=== PATIENT | male | born 1945 | race Caucasian/White ===

== ENCOUNTER 2019-11-12 09:28 | Outpatient (CLI) | payer MEDICARE, OTHER ==
--- NOTE | 2019-11-12 11:08 | MRI ---
MRI lumbar spine HISTORY: Low back pain. Radiculopathy. Spinal stenosis. FINDINGS: Radiographs are not available for direct correlation, therefore the lowest lumbar type vert ebra will be designated as L5, with the remainder number accordingly. Images including the retroperitoneum show small cysts of the kidneys. Circumaortic left renal vein. The conus medullaris has normal appearance. Desiccation of the lowest 5 intervertebral discs. Mild di scogenic endplate changes within the bone marrow. Mild physiologic wedging of the T12 vertebral body. Disc space narrowing and mild posterior disc bulge at the T11-12 level of the lower thoracic spine. N o significant central canal or foraminal stenosis evident. T12-L1: Disc space narrowing. Mild osteophytosis. Central canal and neural foramina are patent. L1-2: Prominent anterior osteophyte formation and disc bulge. No significant posterior disc bulge. Th ere are degenerative changes of the facets. Central canal and neural foramina are patent. L2-3: Mild posterior disc bulge. Circumferential degenerative changes. Minimal stenosis of the centra l canal. Mild bilateral foraminal stenoses. L3-4: Posterior degenerative changes including prominent facet hypertrophy. Small amount of fluid in the left facet. Thecal sac is patent. Moderate bilateral foraminal stenoses. L4-5: Disc space narrowing and minimal degenerative retrolisthesis. Mild posterior disc bulge and cir cumferential degenerative changes. Mild stenosis of the central canal. Severe right and very severe left foraminal stenoses. L5-S1: Bilateral pars interarticularis defects. Minimal spondylolisthesis. Thecal sac is patent. Dege nerative changes of the facets. Moderate right and moderate to severe left foraminal stenoses. IMPRESSION : Multilevel degenerative changes throughout the lumbar spine as detailed above. Stenoses are most dewey re at the L4-5 level, left greater than right. Clinical correlation regarding the L4 dermatomes is required. No significant central canal stenoses evident. Bilateral spondylolysis with grade 1 spondylolisthesis lumbosacral junction.
--- NOTE | 2019-11-12 12:18 | CT ---
CT chest noncontrast HISTORY: Bronchitis. Dyspnea. Cough. FINDINGS: No comparison. Lungs are well-inflated. There is very mild cylindrical dilatation of the br onchi to each lung base, involving the lower lobes and the right middle and left upper lobes. No significant upper lobe bronchiectasis evident. Mild widespread diffuse peripheral mild interstitial thickening. Minimal nonfocal peripheral patchy g roundglass opacity. No pleural fluid, pulmonary nodules, or bullae. Airways are patent. Small hiatal hernia. Lack of contrast limits evaluation of the soft tissues. There is calcification i n the arterial structures. Degenerative changes throughout the thoracic spine. IMPRESSION : No active inflammatory process evident. Evidence of mild interstitial lung disease including mild diffuse peripheral interstitial thickening and minimal bibasilar cylindrical bronchiectasis. Atherosclerosis. Small hiatal hernia.
--- NOTE | 2019-11-12 12:29 | MRI ---
MRI OF LEFT SHOULDER PERFORMED WITHOUT CONTRAST ENHANCEMENT: HISTORY: Left shoulder pain after yanking a water hose. FINDINGS: There is marked arthrosis of the AC joint. The infraspinatus tendon is intact. There is marked tendinosis of the supraspinatus tendon. There i s amorphous signal change involving the anterior half of the tendon which is a combination of tendino jewel and tear. I suspect a large component of this is tear with granulation tissue forming in the r egion of the defect. The tendon in this region is felt to be retracted by as much as 12 mm. Infrasp inatus tendon is intact. Subscapularis muscle and tendon show mild tendinosis change of the superior fibers. There are tendinosis changes of the intraarticular portion of biceps tendon. The portion w ithin the bicipital groove is also somewhat thickened. There could be an associated split tear prese nt. There is a truncated appearance to the posterior superior labrum and increased signal change at the biceps anchor. This is all compatible with chronic labral tear and scarring. Mild supraspinatus muscle atrophy is noted. Fairly minimal infraspinatus muscle atrophy is seen. IMPRESSION: 1. Severe tendinosis of the supraspinatus tendon with amorphous signal change involving the anterior half of the tendon which his felt to represent a complete tear involving the anterior half of the te ndon with granulation tissue forming related to this more chronic tear. There is fluid in the subacr omial subdeltoid recess. 2. Chronic-appearing superior labral tear and marked tendinosis of the intraarticular portion of the biceps tendon. 3. Severe arthrosis of the acromioclavicular joint. POS: ROSE
== END 2019-11-12 09:29 | disposition home or self-care (01) ==
LOC: BICMRI 09:28
PROVIDERS: ATTEND Internal Medicine
DX: M48.07 Spinal stenosis, lumbosacral region (principal); M25.512 Pain in left shoulder; J40 Bronchitis, not specified as acute or chronic; M48.061 Spinal stenosis, lumbar region without neurogenic claudication; J84.9 Interstitial pulmonary disease, unspecified; J47.9 Bronchiectasis, uncomplicated; I70.0 Atherosclerosis of aorta; K44.9 Diaphragmatic hernia without obstruction or gangrene; M43.07 Spondylolysis, lumbosacral region; M47.816 Spondylosis without myelopathy or radiculopathy, lumbar region; M75.92 Shoulder lesion, unspecified, left shoulder; S43.432A Superior glenoid labrum lesion of left shoulder, initial encounter; M19.011 Primary osteoarthritis, right shoulder
CPT/HCPCS: 71250; 72148

== ENCOUNTER 2020-08-26 08:56 | Inpatient (IN) | payer MEDICARE ==
[2020-08-26 09:18] LABS: #Eosinphils 0.3 thou/uL (0.0-0.7); #Lymphocytes 1.7 thou/uL (1.20-3.40); #Monocytes 0.7 thou/uL (0.11-0.59); #Neutrophils 6.1 thou/uL (1.40-6.50); %Basophils 0.4 % (0.0-1.0); %Lymphocytes 19.2 % (21.0-51.0); %Monocytes 7.5 % (0.0-10.0); %Neutrophils 69.9 % (42.0-75.0); Hemoglobin 16.6 g/dL (14.0-18.0); Mean Corpuscular HGB CONC 34.2 g/dL (32.0-36.0); Mean Corpuscular Hemoglobin 32.8 pg (27.0-31.0); Mean Corpuscular Volume 95.9 fL (78.0-98.0); Mean Platelet Volume 6.7 fL (7.4-10.4); Platelet Count 321 thou/uL (130-400); RBC Distribution Width 11.6 % (11.5-14.5); Red Blood Cell (RBC) Count 5.06 mill/uL (4.70-6.10); White Blood Cell (WBC) Count 8.7 thou/uL (4.8-10.8)
[2020-08-26 09:37] LABS: ALT (SGPT) 12 U/L (8-55); AST (SGOT) 19 U/L (5-34); Albumin 4.5 g/dL (3.4-4.8); Alkaline Phosphatase 68 U/L (40-110); Anion Gap 18 mmol/L (10-20); BUN (Urea Nitrogen) 17 mg/dL (8.4-25.7); Bilirubin, Total 0.6 mg/dL (0.2-1.2); Calc. Creatinine Clearance 0 mL/min (70-130); Calcium 9.3 mg/dL (7.8-10.44); Carbon Dioxide 24 mmol/L (23-31); Chloride 102 mmol/L (98-107); Globulin 3.1 g/dL (2.4-3.5); Glucose 131 mg/dL (83-110); Potassium 3.9 mmol/L (3.5-5.1); Protein, Total 7.6 g/dL (5.8-8.1); Sodium 140 mmol/L (136-145)
--- NOTE | 2020-08-26 09:38 | RAD ---
XR Chest 1 View Portable History: Chest pain Comparison: Reference is made to a CT the chest November 2019 Findings: Lungs are mildly hypoinflated with atelectatic changes. No confluent airspace consolidation , pneumothorax or effusion. No acute osseous abnormality. Impression: No acute intrathoracic abnormality.
[2020-08-26] MEDS ORDERED: Iopamidol 370 76% 50 ML VIAL FS ONE (09:44)
[2020-08-26] MEDS ORDERED: Iopamidol 370 76% 100 ML VIAL ONE (09:44)
[2020-08-26] MEDS ORDERED: Heparin 10,000 UNITS/ 10 ML VIAL ONE (09:51)
[2020-08-26] MEDS ORDERED: Clopidogrel Bisulfate 300 MG TAB ONE (09:51)
[2020-08-26 09:59] LABS: CKMB 3.8 ng/mL (0-6.6)
[2020-08-26] MEDS ORDERED: Aggrastat 12.5 MG/250 ML 250 ML ONE (10:08)
[2020-08-26] MEDS ORDERED: Nitroglycerin 100MG/250ML BOT 250 ML ONE (10:16)
[2020-08-26] MEDS ORDERED: Adenosine 6 MG/2 ML VIAL ONE (10:16)
[2020-08-26] MEDS ORDERED: Fentanyl 100 MCG/2 ML VIAL ONE (10:33)
[2020-08-26] MEDS ORDERED: Milk Of Magnesia 30 ML UDCUP PO PRN (11:04)
[2020-08-26] MEDS ORDERED: Mag-Al 1200 mg/1200 mg/30 ML UDCUP PO PRN (11:04)
[2020-08-26] MEDS ORDERED: Sodium Chloride 0.9% 1,000 ML IV SCH (11:15)
[2020-08-26] MEDS ORDERED: Aggrastat 12.5 MG/250 ML 250 ML IVPB SCH (11:15)
--- NOTE | 2020-08-26 12:49 | HP ---
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 Last evening at 6:30, he had onset of 10 minutes of chest pressure associated with some diaphoresis, this then resolved. This morning at 7 a.m., he again had another 30 minutes of this chest pressure accompanied by mild nausea and diaphoresis, this resolved, and approximately 8 a.m., it again started. This did not resolve and he came to the emergency room. At approximately 9 a.m., he was given sublingual nitroglycerin, intravenous heparin, and his pain dramatically improved. At present time, he denies any chest discomfort, despite still having EKG changes. He has noticed exertiona dyspnea for the past 2 months. PAST MEDICAL HISTORY: Hypertension and hypercholesterolemia. No history of diabetes. ALLERGIES: HE DOES NOT TAKE ANY STATIN MEDICATIONS DUE TO MUSCLE PAIN, ON ATORVASTATIN. CURRENT MEDICATIONS: Amlodipine and losartan/hydrochlorothiazide, unknown doses for hypertension. OPERATIONS: Right carpal tunnel and cubital surgery. Appendectomy. Prostatectomy. SOCIAL HISTORY: He does not smoke. He drinks 2 whiskey drinks per day. 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 FAMILY HISTORY: Father had rheumatic fever and a valve replacement. No known history of coronary artery disease. REVIEW OF SYSTEMS: A 10-point review of systems is otherwise unremarkable. PHYSICAL EXAMINATION: VITAL SIGNS: Blood pressure 122/70, pulse of 80. HEENT: PERRL. NECK: Supple. CHEST: Clear. CARDIAC: S1 and S2 normal without any S3, S4, or murmurs. Carotid upstrokes normal without bruits. ABDOMEN: Mildly obese. Normal bowel sounds. No tenderness. EXTREMITIES: Revealed no clubbing, cyanosis, or edema. NEUROLOGIC: Grossly intact. SKIN: Warm and dry. IMAGING STUDIES: EKGs revealed a [address]-segment elevation in the anterolateral leads. LABORATORY DATA: Hemoglobin 16.6, hematocrit 48.6, white count 8700, platelets 321,000. Sodium 140, potassium 3.9, chloride 102, carbon dioxide 24, BUN 17, creatinine 1.16, glucose 131, CK-MB 3.8. Troponin-I 0.272. IMPRESSION: 1. Anterolateral ST segment elevation myocardial infarction. 2. Hypertension. 3. Hypercholesterolemia, unable to tolerate statins. 4. Elevated glucose. 5. Mild obesity. 6. ETOH use. 7. History of prostatectomy for prostate cancer. PLAN: It is recommended that Dr. Ortega undergo emergent cardiac catheterization. Risks were discussed including , myocardial infarction, dye reaction, vascular injury, CVA, transfusion, limb loss, renal loss, etc. Also risk of intervention with PTCA and stent placement were discussed including , myocardial infarction, emergent CABG, restenosis, stent thrombosis, vessel perforation, etc. He has never had any gastrointestinal bleeding or stroke. He does not have any upcoming surgeries and overall is recommended that a drug eluting stent will be placed if required. Job ID: [id number] [facility]
[2020-08-26 13:03] LABS: SARS-CoV-2 NAA Rapid Test Not Detected (NotDetected)
[2020-08-26 15:55] LABS: Hemoglobin A1c 5.3 % (4.0-6.0)
[2020-08-26 15:57] LABS: Cardiac Risk 3.9 (Less than 4.5)
[2020-08-26 16:14] LABS: CKMB 66.2 ng/mL (0-6.6); Troponin I 10.327 ng/mL (< 0.028)
[2020-08-26] MEDS: Metoprolol Tartrate 25 MG TAB PO SCH (20:57)
[2020-08-26 22:51] LABS: CKMB 77.3 ng/mL (0-6.6)
[2020-08-27 01:18] LABS: Troponin I 16.676 ng/mL (< 0.028)
[2020-08-27 04:07] LABS: #Eosinphils 0.2 thou/uL (0.0-0.7); #Monocytes 0.7 thou/uL (0.11-0.59); #Neutrophils 6.2 thou/uL (1.40-6.50); %Basophils 0.3 % (0.0-1.0); %Lymphocytes 11.8 % (21.0-51.0); Hemoglobin 14.5 g/dL (14.0-18.0); Mean Corpuscular HGB CONC 32.8 g/dL (32.0-36.0); Mean Corpuscular Hemoglobin 31.3 pg (27.0-31.0); Mean Corpuscular Volume 95.4 fL (78.0-98.0); Mean Platelet Volume 6.8 fL (7.4-10.4); Platelet Count 289 thou/uL (130-400); RBC Distribution Width 11.8 % (11.5-14.5); Red Blood Cell (RBC) Count 4.62 mill/uL (4.70-6.10); White Blood Cell (WBC) Count 8.1 thou/uL (4.8-10.8)
[2020-08-27 04:23] LABS: ALT (SGPT) 18 U/L (8-55); AST (SGOT) 80 U/L (5-34); Albumin 3.6 g/dL (3.4-4.8); Alkaline Phosphatase 52 U/L (40-110); Anion Gap 13 mmol/L (10-20); BUN (Urea Nitrogen) 16 mg/dL (8.4-25.7); Bilirubin, Total 0.5 mg/dL (0.2-1.2); Calc. Creatinine Clearance 0 mL/min (70-130); Calcium 8.1 mg/dL (7.8-10.44); Carbon Dioxide 23 mmol/L (23-31); Chloride 105 mmol/L (98-107); Globulin 2.5 g/dL (2.4-3.5); Glucose 101 mg/dL (83-110); Potassium 3.9 mmol/L (3.5-5.1); Protein, Total 6.1 g/dL (5.8-8.1); Sodium 137 mmol/L (136-145)
[2020-08-27] MEDS ORDERED: Clopidogrel Bisulfate 75 MG TAB ONE (09:02)
[2020-08-27] MEDS ORDERED: Aspirin 81 mg Enteric Coated Tablet ONE (09:04)
[2020-08-27] MEDS: Aspirin Chewable 81 MG TAB PO SCH (09:16)
[2020-08-27] MEDS: Clopidogrel Bisulfate 75 MG TAB PO SCH (09:16)
[2020-08-27] MEDS: Metoprolol Tartrate 25 MG TAB PO SCH ×2 (10:22→21:12)
--- NOTE | 2020-08-27 10:35 | EKG ---
Test Reason : S/P STEMI Blood Pressure : / mmHG Vent. Rate : 085 BPM Atrial Rate : 085 BPM P-R Int : 178 ms QRS Dur : 080 ms QT Int : 350 ms P-R-T Axes : 051 027 029 degrees QTc Int : 416 ms Normal sinus rhythm Low voltage QRS Borderline ECG Confirmed by DIANE HANCOCK ([id number]) on 08/27/2020 10:34:54 AM Referred By: FRANK Confirmed By:DIANE HANCOCK
[2020-08-28] MEDS: Clopidogrel Bisulfate 75 MG TAB PO SCH (09:20)
[2020-08-28] MEDS: Aspirin Chewable 81 MG TAB PO SCH (09:20)
--- NOTE | 2020-08-28 09:20 | EKG ---
Test Reason : Blood Pressure : / mmHG Vent. Rate : 093 BPM Atrial Rate : 092 BPM P-R Int : 000 ms QRS Dur : 130 ms QT Int : 420 ms P-R-T Axes : 000 235 054 degrees QTc Int : 522 ms Sinus rhythm Accelerated Ventricular rhythm Abnormal ECG When compared with ECG of 26-AUG-2020 12:17, (Unconfirmed) Wide QRS rhythm has replaced Sinus rhythm Confirmed by DIANE HANCOCK ([id number]) on 08/28/2020 9:20:17 AM Referred By: Confirmed By:DIANE HANCOCK
--- NOTE | 2020-08-28 09:21 | EKG ---
Test Reason : Blood Pressure : / mmHG Vent. Rate : 083 BPM Atrial Rate : 083 BPM P-R Int : 188 ms QRS Dur : 082 ms QT Int : 438 ms P-R-T Axes : 036 034 116 degrees QTc Int : 514 ms Normal sinus rhythm Prolonged QT Abnormal ECG Confirmed by DIANE HANCOCK ([id number]) on 08/28/2020 9:21:49 AM Referred By: FRANK Confirmed By:DIANE HANCOCK
[2020-08-28] MEDS ORDERED: Melatonin 3 MG TAB PO PRN (19:14)
[2020-08-29 07:53] VITALS: BP 110/62; TEMP 97.5
[2020-08-29] MEDS: Clopidogrel Bisulfate 75 MG TAB PO SCH (09:13)
[2020-08-29] MEDS: Aspirin Chewable 81 MG TAB PO SCH (09:13)
--- NOTE | 2020-08-29 12:31 | EKG ---
Test Reason : Blood Pressure : / mmHG Vent. Rate : 081 BPM Atrial Rate : 081 BPM P-R Int : 182 ms QRS Dur : 082 ms QT Int : 466 ms P-R-T Axes : 042 030 139 degrees QTc Int : 541 ms Normal sinus rhythm Prolonged QT Abnormal ECG Confirmed by DIANE HANCOCK ([id number]) on 08/29/2020 12:31:00 PM Referred By: FRANK Confirmed By:DIANE HANCOCK
--- NOTE | 2020-08-30 06:19 | DIS ---
DATE OF ADMISSION: 08/26/2020 DATE OF DISCHARGE: 08/29/2020 DISCHARGE DIAGNOSES: 1. Anterolateral ST-elevation myocardial infarction with peak troponin-I 16.676, MB 77.3. 2. Drug-eluting stent placed from the mid to distal LAD. 3. Idioventricular rhythm during the first 24 hours. 4. Hypertension. 5. Hypercholesterolemia with statin intolerance. 6. Mild obesity. 7. ETOH use. 8. History of prostate cancer. DISCHARGE DISPOSITION: The patient will be seen in 1 month with fasting lipid profile and complete metabolic panel and EKG. DISCHARGE MEDICATIONS: 1. Aspirin 81 mg daily. 2. Plavix 75 mg q.a.m. 3. Metoprolol 25 XL daily. 4. Nitroglycerin p.r.n. 5. Repatha 140 q2 weeks. HOSPITAL COURSE: Mr. Ortega in retrospect, gives a history of exertional dyspnea for the past 2 months, where he would have to stop, rest, and catch his breath for 5 to 10 minutes. He did not have any chest discomfort until the evening prior to admission when he had approximately 10 minutes. He then had two more episodes on the day of admission, came to the ER, was found to have changes consistent with anterolateral STEMI on his EKG. He was given nitroglycerin and heparin in the ER, and his pain seemed to resolve; however, he continued to have EKG changes. He was then taken emergently to the cardiac process laboratory specialist. He had separate ostia to the LAD and circumflex. The LAD had 20% proximal stenosis and 90% mid stenosis and a 60% distal stenosis. The circumflex had a 20% stenosis and the right coronary artery was normal. He underwent placement of Synergy 2.25 x 24 and 2.5 x 28 in the mid to distal LAD with excellent result. He was gradually ambulated and was walking 510 feet in the mirza without symptoms. He was placed on low-dose beta wade. Due to his statin intolerance, he will go to the office after discharge and will be started on Repatha 140 mg q.2 weeks. Job ID: [id number] [facility]
--- NOTE | 2020-09-13 21:51 | EKG ---
Test Reason : Blood Pressure : / mmHG Vent. Rate : 096 BPM Atrial Rate : 096 BPM P-R Int : 178 ms QRS Dur : 074 ms QT Int : 332 ms P-R-T Axes : 048 018 -18 degrees QTc Int : 419 ms Normal sinus rhythm Low voltage QRS Anterior infarct , possibly acute Lateral injury pattern ACUTE MO / STEMI Abnormal ECG Confirmed by RIANNA WHITESIDE DO ([id number]), assistant editor JULI DEMPSEY ([id number]) on 09/13/2020 9:51:01 PM Referred By: Confirmed By:RIANNA WHITESIDE DO
== END 2020-08-29 10:20 | disposition home or self-care (01) | DRG 247 ==
LOC: ERS 08:56 → CCL 09:25 → CCU 19:19 → 2NO 08-27 12:46
PROVIDERS: ADMIT Internal Medicine Cardiovascular Disease; ATTEND Internal Medicine Cardiovascular Disease
PROC: 027035Z Dilation of Coronary Artery, One Artery with Two Drug-eluting Intraluminal Devices, Percutaneous Approach (ICD-10-PCS; principal; 2020-08-26)
PROC: 02C03ZZ Extirpation of Matter from Coronary Artery, One Artery, Percutaneous Approach (ICD-10-PCS; 2020-08-26)
PROC: 4A023N7 Measurement of Cardiac Sampling and Pressure, Left Heart, Percutaneous Approach (ICD-10-PCS; 2020-08-26)
PROC: B2111ZZ Fluoroscopy of Multiple Coronary Arteries using Low Osmolar Contrast (ICD-10-PCS; 2020-08-26)
PROC: 3E033PZ Introduction of Platelet Inhibitor into Peripheral Vein, Percutaneous Approach (ICD-10-PCS; 2020-08-26)
PROC: 3E03317 Introduction of Other Thrombolytic into Peripheral Vein, Percutaneous Approach (ICD-10-PCS; 2020-08-26)
DX: I21.09 ST elevation (STEMI) myocardial infarction involving other coronary artery of anterior wall (principal); Z20.822 Contact with and (suspected) exposure to COVID-19; I10 Essential (primary) hypertension; E78.00 Pure hypercholesterolemia, unspecified; E66.9 Obesity, unspecified; R73.9 Hyperglycemia, unspecified; I25.10 Atherosclerotic heart disease of native coronary artery without angina pectoris; N40.0 Benign prostatic hyperplasia without lower urinary tract symptoms; Z68.30 Body mass index [BMI] 30.0-30.9, adult; Z85.46 Personal history of malignant neoplasm of prostate; Z88.8 Allergy status to other drugs, medicaments and biological substances; Z90.79 Acquired absence of other genital organ(s); Z82.49 Family history of ischemic heart disease and other diseases of the circulatory system; Z90.49 Acquired absence of other specified parts of digestive tract; Z79.899 Other long term (current) drug therapy; Z79.51 Long term (current) use of inhaled steroids
CPT/HCPCS: 36415; 71045; 80053; 80061; 82553; 83036; 84484; 85025; 85347; 92928; 92973; 92977; 93005; 93010; 93306; 93454; 93798; 96374; 96376; C1757; C1874; C9600; J0153; J1644; J3010; J3246; Q9967; U0002

== ENCOUNTER 2020-10-28 14:32 | Observation (INO) | payer MEDICARE ==
[2020-10-28 15:43] LABS: #Basophils 0.1 thou/uL (0.0-0.2); #Eosinphils 0.3 thou/uL (0.0-0.7); #Lymphocytes 0.9 thou/uL (1.20-3.40); #Monocytes 0.6 thou/uL (0.11-0.59); #Neutrophils 5.1 thou/uL (1.40-6.50); %Basophils 0.7 % (0.0-1.0); %Eosinophils 4.2 % (0.0-10.0); %Lymphocytes 13.6 % (21.0-51.0); %Monocytes 8.4 % (0.0-10.0); %Neutrophils 73.1 % (42.0-75.0); Hemoglobin 15.6 g/dL (14.0-18.0); Mean Corpuscular HGB CONC 33.9 g/dL (32.0-36.0); Mean Corpuscular Hemoglobin 32.5 pg (27.0-31.0); Mean Corpuscular Volume 95.9 fL (78.0-98.0); Mean Platelet Volume 6.9 fL (7.4-10.4); Platelet Count 283 thou/uL (130-400); RBC Distribution Width 12.1 % (11.5-14.5); White Blood Cell (WBC) Count 6.9 thou/uL (4.8-10.8)
[2020-10-28 16:25] LABS: ALT (SGPT) 14 U/L (8-55); AST (SGOT) 21 U/L (5-34); Albumin 4.2 g/dL (3.4-4.8); Alkaline Phosphatase 62 U/L (40-110); Anion Gap 15 mmol/L (10-20); BUN (Urea Nitrogen) 16 mg/dL (8.4-25.7); Bilirubin, Total 0.6 mg/dL (0.2-1.2); Calc. Creatinine Clearance 0 mL/min (70-130); Calcium 8.7 mg/dL (7.8-10.44); Carbon Dioxide 25 mmol/L (23-31); Chloride 104 mmol/L (98-107); Globulin 2.9 g/dL (2.4-3.5); Glucose 81 mg/dL (83-110); Lipase 31 U/L (8-78); Potassium 4.5 mmol/L (3.5-5.1); Protein, Total 7.1 g/dL (5.8-8.1); Sodium 139 mmol/L (136-145)
[2020-10-28 16:51] LABS: CKMB 1.5 ng/mL (0-6.6)
[2020-10-28 17:57] LABS: Troponin I 0.064 ng/mL (< 0.028)
[2020-10-28] MEDS ORDERED: Ondansetron ODT 4 MG TAB PO PRN (19:58)
[2020-10-28] MEDS ORDERED: Acetaminophen 325 MG TAB PO PRN (19:58)
[2020-10-28 21:08] LABS: CKMB 1.3 ng/mL (0-6.6)
[2020-10-28] MEDS ORDERED: hydrALAZINE 25 MG TAB PO PRN (22:26)
[2020-10-29 02:27] VITALS: BMI 29.6
[2020-10-29 05:36] LABS: SARS-CoV-2 PCR by NAA Not Detected (NotDetected)
[2020-10-29 07:32] VITALS: BP 151/82; TEMP 98.3
== END 2020-10-29 10:03 | disposition home or self-care (01) ==
LOC: ERS 14:32 → ERHOLD 19:38 → 2SW 10-29 02:09
PROVIDERS: ADMIT Emergency Medicine; ATTEND Emergency Medicine
DX: I16.1 Hypertensive emergency (principal); I10 Essential (primary) hypertension; I25.10 Atherosclerotic heart disease of native coronary artery without angina pectoris; I25.2 Old myocardial infarction; E78.5 Hyperlipidemia, unspecified; J30.2 Other seasonal allergic rhinitis; N40.0 Benign prostatic hyperplasia without lower urinary tract symptoms; Z87.891 Personal history of nicotine dependence; Z79.02 Long term (current) use of antithrombotics/antiplatelets; Z79.82 Long term (current) use of aspirin; Z79.899 Other long term (current) drug therapy; Z88.8 Allergy status to other drugs, medicaments and biological substances; Z95.5 Presence of coronary angioplasty implant and graft; Z20.822 Contact with and (suspected) exposure to COVID-19
CPT/HCPCS: 71046; 80053; 82553; 83690; 84484 ×2; 85025; 93005; 99285; G0378 ×3; U0003; U0005; 36415; 87635

== ENCOUNTER 2020-11-24 11:25 | Outpatient (CLI) | payer MEDICARE | END 2020-11-24 11:26 | disposition home or self-care (01) | LOC: BICRAD 11:25 | PROVIDERS: ATTEND Specialist | DX: M48.02 Spinal stenosis, cervical region (principal); R07.89 Other chest pain; M47.22 Other spondylosis with radiculopathy, cervical region; M50.322 Other cervical disc degeneration at C5-C6 level; J98.4 Other disorders of lung; I25.10 Atherosclerotic heart disease of native coronary artery without angina pectoris | CPT/HCPCS: 71046; 72040 ==

== ENCOUNTER 2020-12-31 09:10 | Outpatient (CLI) | payer MEDICARE, OTHER | END 2020-12-31 09:11 | disposition home or self-care (01) | LOC: BICCT 09:10 | PROVIDERS: ATTEND Internal Medicine Critical Care Medicine | DX: R06.00 Dyspnea, unspecified (principal) | CPT/HCPCS: 71250 ==

== ENCOUNTER 2021-12-21 14:35 | Outpatient (CLI) | payer MEDICARE | END 2021-12-21 14:36 | disposition home or self-care (01) | LOC: RAD 14:35 | PROVIDERS: ATTEND Specialist | DX: M47.26 Other spondylosis with radiculopathy, lumbar region (principal); M43.16 Spondylolisthesis, lumbar region | CPT/HCPCS: 72100 ==

== ENCOUNTER 2021-12-30 09:04 | Outpatient (CLI) | payer MEDICARE | END 2021-12-30 09:05 | disposition home or self-care (01) | LOC: BICCT 09:04 | PROVIDERS: ATTEND Internal Medicine Critical Care Medicine | DX: J84.9 Interstitial pulmonary disease, unspecified (principal) | CPT/HCPCS: 71250 ==

== ENCOUNTER 2022-01-27 10:24 | Outpatient (CLI) | payer MEDICARE | END 2022-01-27 10:25 | disposition home or self-care (01) | LOC: RAD 10:24 | PROVIDERS: ATTEND Internal Medicine Critical Care Medicine | DX: R06.00 Dyspnea, unspecified (principal) | CPT/HCPCS: 71046 ==

== ENCOUNTER 2022-09-14 11:58 | Outpatient (CLI) | payer MEDICARE | END 2022-09-14 11:59 | disposition home or self-care (01) | LOC: RAD 11:58 | PROVIDERS: ATTEND Internal Medicine Critical Care Medicine | DX: R06.00 Dyspnea, unspecified (principal); J98.4 Other disorders of lung | CPT/HCPCS: 71046 ==

== ENCOUNTER 2022-09-27 12:43 | Outpatient (CLI) | payer MEDICARE | END 2022-09-27 12:44 | disposition home or self-care (01) | LOC: CT 12:43 | PROVIDERS: ATTEND Internal Medicine Critical Care Medicine | DX: R06.00 Dyspnea, unspecified (principal); J47.9 Bronchiectasis, uncomplicated | CPT/HCPCS: 71250; 94010; 94726; 94729; 94760 ==

== ENCOUNTER 2024-04-06 13:10 | Outpatient (CLI) | payer MEDICARE | END 2024-04-06 13:11 | disposition home or self-care (01) | LOC: BICCT 13:10 | PROVIDERS: ATTEND Internal Medicine Cardiovascular Disease | DX: R06.00 Dyspnea, unspecified (principal); R91.8 Other nonspecific abnormal finding of lung field; J47.9 Bronchiectasis, uncomplicated; J98.4 Other disorders of lung | CPT/HCPCS: 71250 ==

== ENCOUNTER 2024-07-30 09:18 | Outpatient (CLI) | payer MEDICARE | END 2024-07-30 09:19 | disposition home or self-care (01) | LOC: RAD 09:18 | PROVIDERS: ATTEND Internal Medicine Critical Care Medicine | DX: R06.00 Dyspnea, unspecified (principal); J84.10 Pulmonary fibrosis, unspecified; I51.7 Cardiomegaly | CPT/HCPCS: 71046 ==